=== PATIENT | male | born 1955 | race Caucasian/White ===

== ENCOUNTER 2018-07-16 02:58 | Outpatient (CLI) | payer BC, SELFPAY ==
[2018-07-16 10:06] LABS: Anion Gap 9.2 mmol/L (3-11); BUN 23 mg/dL (7-18); CO2 29.8 mmol/L (21.0-32.0); CREATININE 0.74 mg/dL (0.70-1.30); Calcium 9.4 mg/dL (8.5-10.1); Chloride 101 mmol/L (98-107); Glucose 115 mg/dL (70-100); Potassium 4.7 mmol/L (3.5-5.1); Sodium 140 mmol/L (136-145)
== END 2018-07-16 03:18 ==
PROVIDERS: PCP Family Medicine; Visit Provider Family Medicine
DX: I10 Essential (primary) hypertension (principal)
CPT/HCPCS: 36415; 80048

== ENCOUNTER 2020-08-09 10:48 | Outpatient (CLI) | payer BC, SELFPAY ==
[2020-08-09 12:53] LABS: CREATININE 0.9 mg/dL (0.70-1.30); Potassium 4.2 mmol/L (3.5-5.1)
== END 2020-08-09 10:49 | disposition home or self-care (01) ==
LOC: LOS 10:48
PROVIDERS: PCP Nurse Practitioner; Visit Provider Nurse Practitioner
DX: I10 Essential (primary) hypertension (principal); Z13.1 Encounter for screening for diabetes mellitus
CPT/HCPCS: 36415; 82565; 83036; 84132

== ENCOUNTER 2021-08-15 08:33 | Outpatient (CLI) | payer BC, SELFPAY ==
[2021-08-15 12:38] LABS: Anion Gap 10.9 mmol/L (3-11); BUN 20 mg/dL (7-18); CO2 25.1 mmol/L (21.0-32.0); CREATININE 0.8 mg/dL (0.70-1.30); Calcium 8.8 mg/dL (8.5-10.1); Calculated LDL 112 mg/dL (<100); Chloride 108 mmol/L (98-107); Cholesterol 171 mg/dL (<200); Glucose 118 mg/dL (74-106); HDL Cholesterol 52 mg/dL (40-60); Potassium 4.3 mmol/L (3.5-5.1); Sodium 144 mmol/L (136-145); Triglyceride 38 mg/dL (<150)
[2021-08-15 13:24] LABS: Hemoglobin A1C 6.2 % (<5.7)
== END 2021-08-15 08:34 | disposition home or self-care (01) ==
LOC: LOS 08:34
PROVIDERS: PCP Nurse Practitioner; Visit Provider Nurse Practitioner
DX: Z00.00 Encounter for general adult medical examination without abnormal findings (principal)
CPT/HCPCS: 36415; 80048; 80061; 83036

== ENCOUNTER 2022-08-01 08:59 | Day surgery (SDC) | payer BC, SELFPAY ==
--- NOTE | 2022-07-31 12:11 | PDOC.DSDIS_ITS ---
Date of service: 08/01/22 Time of Service: 10:39 Discharge Plan Disposition Patient Disposition: Home Condition: Good Discharge Details Reason For Visit: Colonoscopy/colon scope Attending Provider: Alice Ayala Primary Care Provider: Michelle Whitaker Home Meds and New Rx's Prescriptions: Discontinued bisacodyl [Dulcolax (bisacodyl)] 5 mg tablet,delayed release (DR/EC) 5 mg PO ONCE Qty: 4 0RF Rx Instructions: Colonoscopy Bowel Prep- Per Instructions polyethylene glycol 3350 17 gram/dose powder 238 g PO ONCE Qty: 238 0RF Rx Instructions: Colonoscopy Bowel Prep- Per Instructions No Action multivitamin [Daily Multi-Vitamin] Tablet 1 tab PO DAILY losartan 50 mg tablet 50 mg PO DAILY Qty: 90 3RF Discharge Instructions Additional Instructions: DSU Colonoscopy Post- Op Instructions Instructions for Everyone who is given Anesthesia: For your safety, please do the following for the next twenty-four (24) hours: *Do Not operate a motor vehicle (car, truck, motorcycle, etc.) *Do Not drink alcoholic beverages or use any recreational drugs for the first 24 hours or while taking pain medications. The medications in your body may have a reaction that can be dangerous. *Do Not make any important decisions or sign any important papers. Findings: X2 small polyps diverticula Follow up: My office will send a letter in 2 to 3 weeks time stating as to what type of polyps they are and when we want you to repeat the colonoscopy. 1. No lifting over 20 pounds or strenuous activity for the first 24 hours after your procedure. After 24 hours there are no restrictions on your activity but you may feel fatigued for a few days. 2. After you arrive home you may have a light meal and return to your normal diet as you can tolerate it without feeling sick to your stomach. 3. You may have a bloated, gaseous feeling in your belly (abdomen) after a colonoscopy. Passing gas and belching will help. Walking or lying down on your left side with your knees flexed may relieve the discomfort. Call the office at [phone] (Office) or [phone] (Hospital) right away if you notice any of the following: a.Vomiting of blood or ?coffee ground stools?. b.Rectal bleeding 1Tbsp, blood clots or continuous bleeding. c.Severe belly (abdominal) pain. d.A hard distended belly (abdomen) and an inability to pass gas. 4. Please don?t expect to have a normal BM (bowel movement) for 2-3 days after your procedure. 5. If there are questions regarding the findings of your procedure, please contact your doctor 6. If you are unable to contact your doctor with a problem, contact the hospital at [phone]. 7. Continue all your regular medications unless directed otherwise. I understand the above instructions and have no questions. Signature of Patient or Adult Escort Name of Responsible Adult Escort Signature of Nurse Date/Time Activity:: See above Diet:: See above Discharge Orders Discharge Orders: Discharge Order (Routine); Ordered 08/01/22 Ordered By: Alice Ayala
--- NOTE | 2022-07-31 12:11 | W.COLOREPORT ---
Date of service: 08/01/22 Time of Service: 10:00 Colonoscopy Report Date of procedure: 08/01/22 Pre-op diagnosis general: History of adenomatous polyps @ 50cm Post-op diagnosis procedure note: other (Diverticula and polyps) Surgeon: Alice Ayala Anesthesia Type: General:No Airway Estimated blood loss (mL): 1 Pathology: other Complications: None Disposition: same day Prep: Miralax/Dulcolax Retraction Time: 15 Procedure Description: After informed consent was obtained the patient was taken to the procedure room and placed in a left decubitous position. Monitors were applied and a time out was done. The patients name, date of , procedure, allergies to medications and metal in their body was reviewed. The patient was then sedated. Once sedated and comfortable a rectal exam was done. External exam: normal. Internal exam revealed a normal sphincter tone and no palpable masses. The scope was then introduced and retrofelexed. No internal hemorrhoids were identified. The scope was then advanced to the cecum w/out difficulty. The TI and appendiceal orifice were identified. The prep was BBPS 2 in all segments for a total of 6. . The scope was then slowly retracted over 15 minutes back into the rectum. There are Large mouth diverticula confined to the cecum sigmoid colon, few in number. There is no signs of active bleeding or infection. 2 polyps are removed, one at 50 cm and 1 at 40 cm. They are both flat 5 mm polyps and removed with cold biting forceps. All specimen is retrieved and no bleeding is noted. The scope was removed and the patient was woken up and taken back to Same day surgery in stable condition. The patient tolerated the procedure well and there were no immediate complications. Follow up: The patient should follow up in 7 years unless they develop changes in bowel habits or other new gastrointestinal complaints.
--- NOTE | 2022-07-31 16:59 | W.ANESPRE ---
General Info Date of Service Date Performed: 08/01/22 Height: 5 ft 8 in Weight: 101.151 kg Body Mass Index (BMI): 33.9 Surgical Procedure: Operation Date: 08/01/22 09:50 Proposed Procedure Side Surgeon emma Ayala DO Meds Allergies and Home Medications Allergies Allergy/AdvReac Type Severity Reaction Status Date / Time lisinopril Allergy cough Verified 08/01/22 09:30 Home Medication Medication Instructions Recorded multivitamin (Daily Multi-Vitamin 1 tab PO DAILY 06/02/22 tablet) losartan 50 mg tablet 50 mg PO DAILY #90 tab-caps 07/03/22 Current Visit Medications: Current Medications Generic Name Dose Route Start Last Admin Trade Name Freq PRN Reason Stop Dose Admin Hyoscyamine Sulfate 0.125 mg 08/01/22 00:13 Hyoscyamine 0.125 Mg Sl/Oral/Chew SL DIRECTED PRN Ringer's Solution 1,000 mls @ 80 mls/hr 08/01/22 06:00 IV 08/10/22 23:59 [facility] IV Miscellaneous Supplies 1 each 08/01/22 06:00 Iv Access IV 08/10/22 23:59 DIRECTED TATA Ondansetron HCl 4 mg 08/01/22 00:13 Ondansetron 4 Mg/2 Ml Vial IVP Q4H PRN PRN Nausea / Vomiting Sodium Chloride 0 ml 08/01/22 06:00 Normal Saline Flush 10 Ml Syr IV 08/10/22 23:59 PRN PRN Sodium Chloride 0 ml 08/01/22 06:00 Normal Saline 10 Ml Vial IJ 08/10/22 23:59 DIRECTED PRN Sterile Water 0 ml 08/01/22 06:00 Water,Injection,Sterile 10 Ml Vial IJ 08/10/22 23:59 DIRECTED PRN PFSH Active Problems Active Problems: Problem Status Onset Code Tongue pain K14.6 Prediabetes R73.03 Polyp of colon 07/23/12 K63.5 Essential hypertension 06/15/12 I10 Non morbid obesity due to excess calories 06/28/15 E66.09 Umbilical hernia K42.9 Medical History Medical History BPV (benign positional vertigo) Dental caries (07/09/17) most pulled- Direct inguinal hernia Hydrocele Obesity Surgical History Surgical History Arthroplasty of knee (~2011) Pt states this was an arthroscopy and not a knee replacement; no hardware Colonoscopy - IV Sedation (07/23/12) DR. DAWN RODRIGUEZ; COLON POLYPS Repair of inguinal hernia LEFT Tobacco Smoking/Tobacco Use Status: Never Passive smoking exposure: Yes Second hand exposure: Yes Alcohol Alcohol Intake: current Alcohol intake frequency: a few times a week Alcohol type: beer Substance Use Substance use: Never Substance use type: does not use Vital Signs and Lab Results Vital Signs Most Recent Vital Signs in EMR: Temp Pulse Resp BP Pulse Ox 36.5 C 69 18 152/90 H 97 08/01/22 09:31 08/01/22 09:31 08/01/22 09:31 08/01/22 09:31 08/01/22 09:31 Lab Results Blood Type / Crossmatch: No Data to Display Complete Blood Count: No Data to Display Complete Metabolic Panel: No Data to Display Liver Function Panel: No Data to Display Coagulation Panel: No Data to Display Cardiac Panel: No Data to Display Arterial Blood Gas: No Data to Display Venous Blood Gas: No Data to Display Pancreas Panel: No Data to Display Thyroid Panel: No Data to Display Infectious Disease: No Data to Display Blood Cultures: No Data to Display Toxicology Panel: No Data to Display Anesthesia Assessment and Plan Anesthesia History Personal History: No History of Anesthesia Complications Family History: No Family History of Anesthesia Complications Exercise Tolerance Exercise Tolerance: Metabolic Equivalents>4 Cardiac & Pulmonary Exam Cardiac Exam: Normal S1/S2 Heart Sounds Pulmonary Exam: Clear Bilateral Breath Sounds Implantable Cardiac Device Does patient have a Pacemaker or an ICD?: No Airway Exam Known Difficult Airway: No Mallampati Class: 2 Mouth Opening: Normal (> 3cm) Thyromental Distance: Greater than 3 cm Neck Range of Motion: Full ROM Neck Circumference: Normal Teeth Condition: Generalized Poor Dentition and Loose or Chipped ASA Classification ASA Score: ASA 2 Emergency Case?: No NPO Status NPO Status: NPO Clears >2 hours, Solids >8 hours Anesthesia Plan Resuscitation Status: Full Code Anesthesia Technique: General Anesthesia Airway Planned: Natural Airway Monitors Used: Standard Monitors Preoperative Comments:: 67 yo male for colo. Sig PMHx: preDM (6.0 a1c), HTN (losartan), vertigo, Previous Anes: - colo, fent/midaz/prop, natural airway, no issues.
[2022-08-01 09:31] VITALS: BP 152/90; PULSE 69; RESP 18; TEMP 36.5; O2SAT 97
[2022-08-01] MEDS: Lactated Ringers 1,000 ML 80 ML IV (09:45)
[2022-08-01 09:58] VITALS: BMI 33.9
--- NOTE | 2022-08-01 10:25 | BOWEL_PTH ---
PATIENT: Puneet Loya LOC: [facility] U#:[id number] AGE/SX: 67/M ROOM: RE08/01/[address]: Alice Ayala : 1955 BED: DIS: 08/01/2022 SPEC #: [id number] RECD: 08/01/22 12:42 STATUS: AYESHA RELauren #: [id number] NEREIDA: 08/01/22 10:[address]: Alice Ayala DEPT: Surgical Specimen RECD BY: Elin Powell ENTERED: 08/01/22 12:43 SP TYPE: Bowel OTHR DR: Michelle Whitaker, DAIRY TESTER Tissues: 1 - BIOPSY BOWEL 2 - BIOPSY BOWEL Procedures: GROSS AND MICRO LEVEL 4 Comments: [id number]
[2022-08-01 10:34] VITALS: BP 124/90; PULSE 90; RESP 18; TEMP 36.4; O2SAT 98
[2022-08-01 10:57] VITALS: BP 128/82; PULSE 75; RESP 18; TEMP 36.5; O2SAT 98
--- NOTE | 2022-08-01 11:03 | W.ANESPOSTOP ---
Postoperative Evaluation Date, Time and Location Date Performed: 08/01/22 Time Performed: 10:55 Patient Location: Day Surgery Unit Vital Signs Most Recent Imported Vital Signs: Most Recent Vital Signs Temp Pulse Resp BP Pulse Ox 36.5 C 75 18 128/82 98 08/01/22 10:57 08/01/22 10:57 08/01/22 10:57 08/01/22 10:57 08/01/22 10:57 Pain Score Most Recent Pain Score: Most Recent Pain Score Pain Level 0 08/01/22 10:57 Assessment Mental Status: Awake (Alert & Oriented to Patient Baseline) Airway and Respiratory Function: Patent airway with normal (patient baseline) respiratory exam Cardiovascular Function: Hemodynamically Stable Hydration Status: Adequately Hydrated Nausea & Vomiting: No Nausea or Vomiting Pain: Pt. Denies Any Pain Peripheral Nerve Block: Patient did not receive a nerve block
== END 2022-08-01 11:23 | disposition home or self-care (01) ==
PROVIDERS: PCP Nurse Practitioner Family; Visit Provider Surgery
PROC: 0DJD8ZZ Inspection of Lower Intestinal Tract, Via Natural or Artificial Opening Endoscopic (ICD-10-PCS; CPT 45378; principal; 2022-08-01 09:45)
DX: Z12.11 Encounter for screening for malignant neoplasm of colon (principal); K63.5 Polyp of colon; K57.30 Diverticulosis of large intestine without perforation or abscess without bleeding
CPT/HCPCS: 45380; 88305

== ENCOUNTER 2022-08-14 01:40 | Outpatient (CLI) | payer BC, SELFPAY ==
[2022-08-14 12:08] LABS: MCH 32.4 pg (27.0-33.0); MCV 95 fL (80-95); MPV 11.2 fL (8.0-11.0); Platelet Count 206 10^3/uL (130-400); RBC 4.94 10^6/uL (4.36-5.78); RDW 12.4 % (11.8-14.1); RDW-SD 43.5 fL; WBC 6.16 10^3/uL (4.4-10.8)
[2022-08-14 12:20] LABS: ALT 40 U/L (16-63); AST 22 U/L (15-37); Albumin 4.1 g/dL (3.4-5.0); Alkaline Phosphatase 88 U/L (46-116); Anion Gap 6.7 mmol/L (3-11); BUN 19 mg/dL (7-18); Bilirubin, Total 0.6 mg/dL (0.2-1.0); CO2 29.3 mmol/L (21.0-32.0); CREATININE 0.9 mg/dL (0.70-1.30); Calcium 8.9 mg/dL (8.5-10.1); Calculated LDL 100 mg/dL (<100); Chloride 104 mmol/L (98-107); Cholesterol 162 mg/dL (<200); Estimated GFR 94.78 (mL/min/1.73m2); Glucose 114 mg/dL (74-106); HDL Cholesterol 56 mg/dL (40-60); Potassium 4.3 mmol/L (3.5-5.1); Sodium 140 mmol/L (136-145); Total Protein 7.7 g/dL (6.4-8.2); Triglyceride 34 mg/dL (<150)
[2022-08-14 22:21] LABS: PSA, Screening 1.2 ng/mL (<=4.5)
== END 2022-08-14 01:41 | disposition home or self-care (01) ==
LOC: LOS 01:40
PROVIDERS: PCP Nurse Practitioner Family; Visit Provider Nurse Practitioner Family
DX: Z00.00 Encounter for general adult medical examination without abnormal findings (principal); I10 Essential (primary) hypertension; R73.03 Prediabetes; E66.09 Other obesity due to excess calories; Z12.5 Encounter for screening for malignant neoplasm of prostate
CPT/HCPCS: 36415; 80053; 80061; 84153; 85027

== ENCOUNTER 2023-08-24 08:56 | Outpatient (CLI) | payer BC, SELFPAY ==
[2023-08-24 12:22] LABS: HCT 47.6 % (40.0-50.0); HGB 16.1 g/dL (13.5-17.5); MCH 32.2 pg (27.0-33.0); MCHC 33.8 % (32.0-36.0); MCV 95 fL (80-95); MPV 10.8 fL (8.0-11.0); Platelet Count 214 10^3/uL (130-400); RDW 12.5 % (11.8-14.1); WBC 6.46 10^3/uL (4.4-10.8)
[2023-08-24 12:50] LABS: ALT 42 U/L (16-63); AST 20 U/L (15-37); Albumin 4.3 g/dL (3.4-5.0); Alkaline Phosphatase 90 U/L (46-116); Anion Gap 9.3 mmol/L (3-11); BUN 23 mg/dL (7-18); Bilirubin, Total 0.7 mg/dL (0.2-1.0); CO2 27.7 mmol/L (21.0-32.0); CREATININE 0.8 mg/dL (0.70-1.30); Calcium 9.2 mg/dL (8.5-10.1); Calculated LDL 108 mg/dL (<100); Chloride 105 mmol/L (98-107); Cholesterol 179 mg/dL (<200); Estimated GFR 97.61 (mL/min/1.73m2); Glucose 115 mg/dL (74-106); HDL Cholesterol 59 mg/dL (40-60); Potassium 4.2 mmol/L (3.5-5.1); Sodium 142 mmol/L (136-145); Total Protein 7.9 g/dL (6.4-8.2); Triglyceride 60 mg/dL (<150)
[2023-08-24 12:53] LABS: Hemoglobin A1C 6.4 % (<5.7)
[2023-08-24 18:33] LABS: PSA, Screening 1.3 ng/mL (<=4.5)
== END 2023-08-24 08:57 | disposition home or self-care (01) ==
LOC: LOS 08:56
PROVIDERS: PCP Nurse Practitioner Family; Visit Provider Nurse Practitioner Family
DX: Z00.00 Encounter for general adult medical examination without abnormal findings (principal); I10 Essential (primary) hypertension; R73.03 Prediabetes; K14.9 Disease of tongue, unspecified; E66.09 Other obesity due to excess calories; Z12.5 Encounter for screening for malignant neoplasm of prostate
CPT/HCPCS: 36415; 80053; 80061; 84153; 85027; 83036

== ENCOUNTER 2024-08-25 09:10 | Outpatient (CLI) | payer BC, SELFPAY ==
[2024-08-25 12:51] LABS: ALT 36 U/L (16-63); AST 27 U/L (15-37); Albumin 4.3 g/dL (3.4-5.0); Alkaline Phosphatase 88 U/L (46-116); Anion Gap 7.1 mmol/L (3-11); BUN 23 mg/dL (7-18); Bilirubin, Total 0.8 mg/dL (0.2-1.0); CO2 27.9 mmol/L (21.0-32.0); CREATININE 0.8 mg/dL (0.70-1.30); Calcium 9.2 mg/dL (8.5-10.1); Calculated LDL 112 mg/dL (<100); Chloride 103 mmol/L (98-107); Cholesterol 183 mg/dL (<200); Glucose 121 mg/dL (74-106); HDL Cholesterol 61 mg/dL (>or=40); Potassium 3.9 mmol/L (3.5-5.1); Sodium 138 mmol/L (136-145); Total Protein 8.1 g/dL (6.4-8.2); Triglyceride 50 mg/dL (<150)
[2024-08-25 19:20] LABS: PSA, Screening 1.5 ng/mL (<=4.5)
== END 2024-08-25 09:11 | disposition home or self-care (01) ==
LOC: LOS 09:11
PROVIDERS: PCP Nurse Practitioner Family; Visit Provider Nurse Practitioner Family
DX: Z00.00 Encounter for general adult medical examination without abnormal findings (principal); I10 Essential (primary) hypertension; R73.03 Prediabetes; Z12.5 Encounter for screening for malignant neoplasm of prostate
CPT/HCPCS: 36415; 80053; 80061; 84153

== ENCOUNTER 2025-02-27 08:13 | Emergency (ER) | payer BC, SELFPAY ==
[2025-02-27 08:16] VITALS: BP 176/83; PULSE 96; RESP 18; TEMP 36.6; O2SAT 100
[2025-02-27 08:20] VITALS: BP 176/83; PULSE 96; RESP 18; TEMP 36.6; O2SAT 100
--- NOTE | 2025-02-27 08:52 | ED.GENADUL_ITS ---
Discharge Plan Disposition Patient Disposition: Home Condition: Good Discharge Details Clinical Impression: Urinary urgency, Hematuria Primary Care Provider: Michelle Whitaker ED Provider: Sandra Gallo Home Meds and New Rx's Prescriptions: New tamsulosin 0.4 mg capsule 0.4 mg PO DAILY Qty: 30 0RF Continued multivitamin [Daily Multi-Vitamin] Tablet 1 tab PO DAILY elderberry fruit 350 mg capsule 2,500 mg PO DAILY losartan 50 mg tablet 50 mg PO DAILY Qty: 90 3RF Discharge Instructions Instructions: Benign prostatic hyperplasia (enlarged prostate), Blood in Urine (Hematuria), Adult ED Additional Instructions: As we discussed, you do not have any findings to suggest an infection. However, you do have some blood in your urine. Your symptoms of progressively worsening bladder urgency is primarily concerning for issue with your prostate such as an enlarged prostate. For this reason, urology recommends that you begin on Flomax which is a medication that should help you urinate better even with an enlarged prostate. I did speak with your primary care who is also happy to see you in follow-up and will make a urology referral if needed. If you develop fever/chills, back pain, inability urinate or other new/worsening symptom please seek care urgently once again. Primary care would like to see you in two weeks, please call to schedule a followup appointment. Stand Alone Forms: Portal Information Referrals: Michelle Whitaker NP [Primary Care Provider, Medicine] [facility] Date/Time Provider Initiated Documentation: 02/27/25 08:21 . Limitations to Documentation: no limitations . Information obtained by: patient and RN notes reviewed . History of Present Illness 69 year old M presents to the emergency department with the chief complaint of urinary frequency, described as moderate, Patient started experiencing this day(s) and it has been constant. No relieving factors improve symptom(s), Other factors that worsen symptoms (drinking more fluids) . Patient notes denies chest pain, diaphoresis, fever/chills, loss of appetite, malaise and nausea/vomiting. Patient did receive the following treatments prior to arrival, none Related Data Home Medications Medication Instructions Recorded Confirmed multivitamin (Daily Multi-Vitamin 1 tab PO DAILY 06/0202/27/25 tablet) elderberry fruit 350 mg capsule 2,500 mg PO DAILY 08/1102/27/25 losartan 50 mg tablet 50 mg PO DAILY #90 tab-caps 07/04/24 02/27/25 tamsulosin 0.4 mg capsule 0.4 mg PO DAILY #30 caps Previous Rx's Medication Instructions Recorded losartan 50 mg tablet 50 mg PO DAILY #90 tab-caps 07/04/24 tamsulosin 0.4 mg capsule 0.4 mg PO DAILY #30 caps Allergies Allergy/AdvReac Type Severity Reaction Status Date / Time lisinopril Allergy cough Verified 02/27/25 08:20 General Stated Complaint: Urinary EDUARDO: 3 Review of Systems Constitutional Constitutional: Reports as per HPI, Denies chills, Denies fever(s) and Denies poor appetite Cardiovascular Cardiovascular: Denies chest pain Respiratory Respiratory: Denies cough Gastrointestinal Gastrointestinal: Denies abdominal pain, Denies change in bowel habits, Denies nausea and Denies vomiting Genitourinary Genitourinary: Reports as per HPI Musculoskeletal Musculoskeletal: Reports as per HPI and Denies back pain Integumentary/Breasts Skin/Breast: Reports as per HPI and Denies rash Exam Const General: cooperative, healthy appearing, comfortable, no acute distress, well developed and well groomed Nutritional Appearance: well nourished and overweight Orientation: alert and awake Resp Effort & Inspection: normal respiratory effort and no respiratory distress Auscultation: clear to auscultation bilaterally, no rales, no rhonchi and no wheezes Cardio Rate: regular rate Rhythm: regular rhythm Heart Sounds: S1 normal and S2 normal GI Inspection: normal to inspection Palpation: soft, no hepatosplenomegaly, not firm, no guarding, not rigid and nontender Male General Exam: Yes normal external exam, No erythema, No lesions and No tenderness Back/Spine/Pelvis Back: no CVA tenderness Skin General skin exam: no rashes or lesions noted Trauma: no lacerations or abrasions Neuro General: patient alert and patient awake Cognition: normal cognition Speech: speech normal Gait: normal gait Course Vital Signs Vital signs: Vital Signs Temperature 36.6 C 02/27/25 08:16 Pulse 96 H 02/27/25 08:16 Respiratory Rate 18 02/27/25 08:16 Blood Pressure 176/83 H 02/27/25 08:16 Pulse Oximetry 100 02/27/25 08:16 Temperature 36.6 C 02/27/25 08:20 Temperature Source Oral 02/27/25 08:20 Pulse 96 H 02/27/25 08:20 Respiratory Rate 18 02/27/25 08:20 Blood Pressure 176/83 H 02/27/25 08:20 Pulse Oximetry 100 02/27/25 08:20 Medical Decision Making Patient is a pleasant 69-year-old gentleman with without significant past presenting today with chief complaint of increased urinary frequency. He reports that it began about 3 days ago but this has steadily been increasing. He denies any flank pain. No penile discomfort or penile discharge. Noted testicular pain. He does report that he has had issues with urinary frequency in the past which she has discussed with his primary care. Primary care has been doing routine PSA screenings, most recent was completed in August and was normal at 1.5. No change in bowel habits. No fevers or chills. Denies any pain with urination or defecation. He denies that he had a digital rectal exam and does not want to have any of these types of exams completed. He reports that when he is able to urinate, such as when he first wakes up in the night, he has your normal urinary stream but then after that we will have difficulty and slow stream. He does report that this will increase with passign flatus. No continued symptoms after voiding. On exam, patient appears nontoxic. Is hemodynamically stable. He is slightly anxious. He has no CVA tenderness. No penile pain or testicular pain. No lesions or swelling. Postvoid residual was completed after obtaining urinary sample, postvoid residual 74 mL. Patient reports has not had any digital rectal exams with his primary care and is not plan to allow for any. Urinalysis shows large amount of blood but otherwise no findings to suggest infection, no casts in the urine or protein. His finger glucose was 119. Reached out to Dr. Palumbo and Jenna Garcia, particularly wit patients level of anxiety and his wish to avoid JOVANNY. Jenna recommended that based on the patient's acute on chronic symptoms as well as the hematuria that we begin him on Flomax. At this point I do not see contraindications for this and patient was agreeable to starting the medication. She also advised that they would happily see the patient in the office if primary care preferred that they take over evaluation of the hematuria. Spoke with patient's primary care, Michelle prepost, discussed the patient's anxiety as well as his urinary urgency and the large amount of blood seen in the urinalysis. She advised that she is having patient in outpatient clinic and referred to have him follow-up with urology if needed but she will continue with the hematuria evaluation and continue with the Flomax if this is beneficial for the patient. Discussed these recommendations with the patient. He agrees to starting Flomax. I did encourage her to continue with the hydration but advised that he cut back to his prior to bed's he is allowed to get more sleep. We discussed return precautions. He is aware that he has a hematuria in his urine and that he is going to follow-up with primary care and possibly urology if warranted. At this point, patient does not appear bacteremic, septic, have symptoms or findings suggestive of prostatitis. More concerned with enlarged prostate, with the blood did consider cancerous etiology. I did discuss these differentials with the patient. All of his questions and concerns were addressed and patient is in agreement this plan. Will follow-up with primary care in the next 1 to 2 weeks. Dictation completed using [employer] dictation software. Please excuse any errors or educational aid anomalies that may remain. Quality:SDOH Health Related Social Needs: Health related social needs lonely/isolated PFSH All Active Problems (Updated 02/27/25 @ 10:22 by LAURYN Lopez) Hematuria (Acute) Urinary urgency (Acute) Tubular adenoma of colon (Acute ~07/31/22) Diverticulosis (Acute) Umbilical hernia (Chronic) Non morbid obesity due to excess calories (Chronic 06/28/15) Essential hypertension (Chronic 06/15/12) Prediabetes (Acute) Tongue pain (Acute) Medical History (Updated 02/27/25 @ 10:22 by LAURYN Lopez) Direct inguinal hernia Hydrocele Polyp of colon (07/23/12) BPV (benign positional vertigo) Dental caries (07/09/17) most pulled- Obesity Surgical History (Updated 10/01/22 @ 14:12 by Eunice Hickman RN) History of colonoscopy with polypectomy (~07/31/22) Repair of inguinal hernia LEFT Colonoscopy - IV Sedation (07/23/12) DR. DAWN RODRIGUEZ; COLON POLYPS Arthroplasty of knee (~2011) Pt states this was an arthroscopy and not a knee replacement; no hardware Family History (Updated 08/25/24 @ 13:41 by Vanesa Bautista) Father Asthma Brother Diabetes Essential hypertension Brother Diabetes Brother No problems noted. Sister No problems noted. Sister No problems noted. Mother No problems noted. 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 Pets and animals: Yes Pets and animals: horse(s) Sexually active: No Do you think of yourself as: straight/heterosexual Current gender identity: male What is your relationship status?: living with partner How often do you talk on the phone with friends or family?: twice per week How often do you get together with friends or relatives?: once per week How often do you attend mandaen or sabianist services?: decline to answer Do you belong to any clubs or organized social groups?: no Panel score (0-1 are the most socially isolated patients): 2 What type of physical activity do you participate in: additional Details: work Duration: 45-60 minutes/day Frequency: daily Andra/Uatsdin: No preference Special andra needs: No Agree to transfusion: Yes Seatbelt use: sometimes Helmet use: No Drive intox or ride w/intox 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
[2025-02-27 08:59] LABS: Glucose Negative (Negative)
[2025-02-27 09:31] VITALS: BP 147/84; PULSE 85; RESP 18; TEMP 36.5; O2SAT 98
[2025-02-27 09:41] LABS: C & S Indicated? No; WBC Negative HPF (0-5)
[2025-02-27 10:30] VITALS: BP 145/80; PULSE 84; RESP 18; TEMP 36.9; O2SAT 96
== END 2025-02-27 10:38 | disposition home or self-care (01) ==
PROVIDERS: Emergency Medicine; Emergency Provider Physician Assistant; PCP Nurse Practitioner Family
DX: R39.15 Urgency of urination (principal); R31.9 Hematuria, unspecified
CPT/HCPCS: 99283 ×2; 36416; 82962; 81003; 81015

== ENCOUNTER 2025-03-13 12:23 | Outpatient (CLI) | payer BC, SELFPAY ==
[2025-03-13 14:18] LABS: HCT 47.7 % (40.0-50.0); HGB 16.4 g/dL (13.5-17.5); MCH 32.2 pg (27.0-33.0); MCHC 34.4 % (32.0-36.0); MCV 94 fL (80-95); MPV 11.0 fL (8.0-11.0); Platelet Count 210 10^3/uL (130-400); RBC 5.09 10^6/uL (4.36-5.78); RDW 12.1 % (11.8-14.1); RDW-SD 42.3 fL; WBC 7.02 10^3/uL (4.4-10.8)
[2025-03-13 14:26] LABS: Anion Gap 8.4 mmol/L (3-11); BUN 19 mg/dL (9-23); CO2 26.6 mmol/L (20.0-31.0); Calcium 9.3 mg/dL (8.3-10.6); Chloride 108 mmol/L (98-107); Glucose 107 mg/dL (74-106); Potassium 4.0 mmol/L (3.5-5.1); Sodium 143 mmol/L (136-145)
[2025-03-13 23:10] LABS: PSA, Screening 1.8 ng/mL (<=4.5)
== END 2025-03-13 12:24 | disposition home or self-care (01) ==
LOC: LOS 12:23
PROVIDERS: PCP Nurse Practitioner Family; Visit Provider Nurse Practitioner Family
DX: R31.9 Hematuria, unspecified (principal); R39.15 Urgency of urination; Z12.5 Encounter for screening for malignant neoplasm of prostate
CPT/HCPCS: 36415; 80048; 84153; 85027

== ENCOUNTER 2025-03-13 21:28 | Outpatient (REF) | payer BC, SELFPAY ==
[2025-03-13 22:05] LABS: Glucose Negative (Negative)
== END 2025-03-13 21:29 | disposition home or self-care (01) ==
LOC: LBN 21:28
PROVIDERS: PCP Nurse Practitioner Family; Visit Provider Nurse Practitioner Family
DX: R30.0 Dysuria (principal)
CPT/HCPCS: 81003